=== PATIENT | female | born 1940 | race Caucasian/White ===

== ENCOUNTER 2019-12-26 21:02 | Emergency (ER) | payer MEDICARE, OTHER ==
[~2019-12-26] VITALS: Ht 154.9 cm; Wt 94.9 kg
--- NOTE | 2019-12-26 21:10 | NUR ---
CALLED PT TO BE TRIAGED, NOT IN WAITING ROOM. WILL FOLLOW UP
--- NOTE | 2019-12-26 21:30 | NUR ---
EMT AT BEDSIDE FOR WOUND CARE
--- NOTE | 2019-12-26 22:00 | NUR ---
DOMINIQUE (SON) CONTACT INFORMATION: [phone]
[2019-12-26] MEDS: TDAP [DIPH/PERTUSSIS/TET] 0.5 ML VIAL IM ONE (23:00)
[2019-12-26] MEDS ORDERED: MORPHINE SULFATE INJ 4 MG/ML DISP.SYRIN ONE (23:20)
[2019-12-26] MEDS: MORPHINE SULFATE INJ 2 MG/ML DISP.SYRIN IM ONE (23:26)
[2019-12-26] MEDS ORDERED: TDAP [DIPH/PERTUSSIS/TET] 0.5 ML VIAL IM ONE (23:51)
--- NOTE | 2019-12-27 00:29 | NUR ---
Patient discharged to home in stable condition. Written and verbal after care instructions given. Patient verbalizes understanding of instruction. Pt picked up by son. kirit.
[2019-12-27 00:31] VITALS: BP 151/89
== END 2019-12-27 00:33 | disposition home or self-care (01) ==
LOC: ER 21:05
DX: S01.111A Laceration without foreign body of right eyelid and periocular area, initial encounter (principal); S13.8XXA Sprain of joints and ligaments of other parts of neck, initial encounter; S83.8X1A Sprain of other specified parts of right knee, initial encounter; S43.492A Other sprain of left shoulder joint, initial encounter; E78.5 Hyperlipidemia, unspecified; I10 Essential (primary) hypertension; W01.0XXA Fall on same level from slipping, tripping and stumbling without subsequent striking against object, initial encounter; Y93.01 Activity, walking, marching and hiking; Y92.090 Kitchen in other non-institutional residence as the place of occurrence of the external cause; Y99.8 Other external cause status
CPT/HCPCS: 70450; 70486; 72125; 73030; 73564; 90471; 90715; 96372; 99285; A6403; J2270